=== PATIENT | male | born 1995 | race Caucasian/White ===

== ENCOUNTER 2024-04-08 18:49 | Observation (INO) | payer BC, OTHER ==
[2024-04-08 19:07] VITALS: RESP 18
[2024-04-08] MEDS: SODIUM CHLORIDE 0.9% 500 ML INFUS.BAG IV ONE (19:08)
[2024-04-08] MEDS ORDERED: ONDANSETRON 4 MG/2 ML VIAL ONE ×2 (19:09→23:00)
[2024-04-08] MEDS ORDERED: ACETAMINOPHEN INJECTION 100 ML IVPB ONE (19:09)
[2024-04-08] MEDS: ONDANSETRON 4 MG/2 ML VIAL IVPUSH ONE ×2 (19:10→23:10)
[2024-04-08 19:11] LABS: HEMATOCRIT 43.1 % (35.4-49); HEMOGLOBIN 14.3 G/dL (11.7-16.9); MCH 29.9 pg (25.7-33.7); MCHC 33.1 g/dl (32.0-35.9); MEAN CELL VOLUME 90.4 fl (80-96); MEAN PLT VOLUME 8.4 fl (7.5-11.1); PLATELET COUNT 171.6 10^3/uL (134-434); RBC 4.77 10^6/uL (4.00-5.60); WHITE BLOOD COUNT 17.5 10^3/uL (4.0-10.8)
[2024-04-08] MEDS: ACETAMINOPHEN 1000 MG/100 ML BAG IVPB ONE (19:15)
[2024-04-08 19:42] LABS: ALBUMIN 4.6 g/dl (3.4-5.0); BILIRUBIN,TOTAL 0.5 mg/dl (0.2-1); CALCIUM 9.5 mg/dl (8.5-10.1); CREATININE 1.2 mg/dl (0.6-1.3); MAGNESIUM 1.3 mg/dL (1.8-2.4); POTASSIUM 3.5 mmol/L (3.5-5.1); TOT PROT 7.2 g/dl (6.4-8.2)
[2024-04-08] MEDS ORDERED: MAGNESIUM 1GM/D5W - 1 GM/100 ML IVPB IVPB ONE (20:28)
[2024-04-08 20:31] LABS: PLATELET ESTIMATE ADEQUATE
[2024-04-08] MEDS: SODIUM CHLORIDE 1,000 ML IV ONE (20:38)
[2024-04-08] MEDS: MAGNESIUM 1GM/D5W 100ML - 100 ML IVPB IVPB STA (20:38)
[2024-04-08 22:32] LABS: LACTIC ACID 2.1 mmol/L (0.4-2.0)
[2024-04-08] MEDS ORDERED: PIPERACILLIN/TAZOBACTAM 4.5 GM VIAL IVPB ONE (23:29)
[2024-04-08] MEDS: PIPERACILLIN/TAZOB 4.5 GM 4.5 GM in DEXTROSE 5%-WATER 100 ML IVPB ONE (23:39)
[2024-04-09] MEDS: MAGNESIUM 1GM/D5W - 1 GM/100 ML IVPB IVPB ONE (00:04)
[2024-04-09] MEDS: D5-NS + 20 MEQ KCL - 20 MEQ/1,000 ML INFUS.BAG IV SCH (00:04)
[2024-04-09 00:39] VITALS: BMI 20.7
[2024-04-09] MEDS ORDERED: ONDANSETRON 4 MG/2 ML VIAL IVPUSH PRN (01:00)
[2024-04-09] MEDS ORDERED: PIPERACILLIN/TAZOB 3.375 GM 3.375 GM in DEXTROSE 5%-WATER - 50 ML IVPB SCH (08:00)
[2024-04-09 08:10] LABS: CALCIUM 8.5 mg/dl (8.5-10.1); MAGNESIUM 2.4 mg/dL (1.8-2.4); POTASSIUM 3.6 mmol/L (3.5-5.1)
[2024-04-09] MEDS: ACETAMINOPHEN 1000 MG/100 ML BAG IVPB PRN (08:55)
[2024-04-09 09:08] LABS: BASO % 0.1 % (0-2.0); HEMATOCRIT 37.4 % (35.4-49); HEMOGLOBIN 12.9 GM/dL (11.7-16.9); LYMPH % 4.7 % (8-40); MCH 30.1 pg (25.7-33.7); MCHC 34.5 g/dl (32.0-35.9); MEAN CELL VOLUME 87.2 fl (80-96); MEAN PLT VOLUME 8.4 fl (7.5-11.1); MONO % 8.9 % (3.8-10.2); NEUT % 86.3 % (42.8-82.8); PLATELET COUNT 151 10^3/uL (134-434); RBC 4.29 M/mm3 (4.00-5.60); RDW 13.9 % (11.9-15.9); WHITE BLOOD COUNT 13.1 K/mm3 (4.0-10.0)
[2024-04-09] MEDS: FLUoxetine HCL 20 MG CAPSULE PO SCH (13:19)
[2024-04-09 14:06] LABS: ERYTHROCYTE SEDIMENTATION RATE 15 mm/hr (0-10)
[2024-04-09] MEDS: LACTATED RINGERS SOLUTION 1,000 ML/1,000 ML INFUS.BAG IV SCH (19:40)
[2024-04-10 01:40] LABS: COCAINE, UR NEGATIVE (NEGATIVE); METHADONE, UR NEGATIVE (NEGATIVE); URINE BENZODIAZEPINES NEGATIVE (NEGATIVE)
[2024-04-10 01:41] LABS: PHENCYCLIDINE,URINE NEGATIVE (NEGATIVE); URINE BARBITURATES NEGATIVE (NEGATIVE)
[2024-04-10 01:42] LABS: OPIATES, URI POSITIVE (NEGATIVE); URINE AMPHETAMINES NEGATIVE (NEGATIVE)
[2024-04-10 02:10] VITALS: PULSE 58
[2024-04-10 07:49] LABS: HEMATOCRIT 37.6 % (35.4-49); HEMOGLOBIN 12.2 G/dL (11.7-16.9); MCH 29.1 pg (25.7-33.7); MCHC 32.4 g/dl (32.0-35.9); MEAN CELL VOLUME 89.9 fl (80-96); MEAN PLT VOLUME 8.3 fl (7.5-11.1); PLATELET COUNT 124.1 10^3/uL (134-434); RBC 4.18 10^6/uL (4.00-5.60); RDW 14.3 % (11.9-15.9); WHITE BLOOD COUNT 7.7 10^3/uL (4.0-10.8)
[2024-04-10 08:13] LABS: ALBUMIN 3.2 g/dl (3.4-5.0); BILIRUBIN,TOTAL 0.3 mg/dl (0.2-1); CALCIUM 8.5 mg/dl (8.5-10.1); CREATININE 0.9 mg/dl (0.6-1.3); MAGNESIUM 1.8 mg/dL (1.8-2.4); PHOSPHOROUS 2.5 (2.5-4.9); POTASSIUM 4.1 mmol/L (3.5-5.1); TOT PROT 5.2 g/dl (6.4-8.2)
[2024-04-10 10:25] VITALS: BP 116/70; TEMP 98.2
== END 2024-04-10 13:30 | disposition home or self-care (01) ==
LOC: FER 18:49 → FM/S 23:29
PROVIDERS: ADMIT Internal Medicine; ATTEND Internal Medicine
PROC: 3E03329 Introduction of Other Anti-infective into Peripheral Vein, Percutaneous Approach (ICD-10-PCS; principal; 2024-04-08)
PROC: 3E033NZ Introduction of Analgesics, Hypnotics, Sedatives into Peripheral Vein, Percutaneous Approach (ICD-10-PCS; 2024-04-08)
PROC: 3E033GC Introduction of Other Therapeutic Substance into Peripheral Vein, Percutaneous Approach (ICD-10-PCS; 2024-04-08)
DX: K52.9 Noninfective gastroenteritis and colitis, unspecified (principal); D72.825 Bandemia; D72.829 Elevated white blood cell count, unspecified; R10.9 Unspecified abdominal pain; R50.9 Fever, unspecified; F32.9 Major depressive disorder, single episode, unspecified
CPT/HCPCS: 0241U-QW; 36415; 71045-TC-FY; 74176-TC; 80048; 80053; 80307; 82438; 82710; 83605; 83690; 83735; 83993; 84100; 84302; 84999; 85025; 85027; 85651; 86140; 87045; 87046; 87186; 87205; 87324; 87449; 96361; 96365; 96367; 96368; 96375; 96376; 99285-25; G0378; J0131